=== PATIENT | female | born 1970 | race Two or more races ===

== ENCOUNTER → 2022-11-11 | Emergency (ER) | payer OTHER ==
[~2022-11-11] VITALS: Ht 165.1 cm; Wt 66.7 kg
[~2022-11-11] MED LIST: BACTRIM DS TAB1 EACH PO; ONDANSETRON ODT8 MG PO; PEPCID AC20 MG PO
== END | disposition home or self-care (01) ==
LOC: ER 16:28
DX: N39.0 Urinary tract infection, site not specified (principal); Z20.822 Contact with and (suspected) exposure to COVID-19